=== PATIENT | male | born 2005 | race Caucasian/White ===

== ENCOUNTER 2025-01-13 18:30 | Emergency (ER) | payer SELFPAY ==
--- NOTE | 2025-01-13 18:36 | ED_ITS ---
HPI - Male Genitourinary General Chief complaint: Urogenital-Male Stated complaint: std testing Time Seen by Provider: 01/13/25 18:33 Source: patient Mode of arrival: ambulatory Limitations: no limitations History of Present Illness HPI Narrative: Patient is a 19-year-old male who presents for STD testing. Patient states he is with 2 sexual partners last week and 1 stated she was positive for herpes and chlamydia. Patient has no symptoms and no open sores. Related Data Home Medications ?Medication ?Instructions ?Recorded ?Confirmed ?Last Taken ?Type Zoloft 01/13/25 Unknown History ibuprofen 01/13/25 Unknown History trazodone 01/13/25 Unknown History Allergies Allergy/AdvReac Type Severity Reaction Status Date / Time bacitracin (From Neosporin Allergy Intermediate Rash Verified 01/13/25 18:58 ([id number])) neomycin (From Neosporin Allergy Intermediate Rash Verified 01/13/25 18:58 ([id number])) polymyxin B (From Neosporin Allergy Intermediate Rash Verified 01/13/25 18:58 ([id number])) acetaminophen (From Tylenol) AdvReac Severe Anaphylaxis Verified 01/13/25 18:58 diphenhydramine (From AdvReac Severe Anaphylaxis Verified 01/13/25 18:58 Benadryl) Review of Systems Review of Systems: All systems reviewed & are unremarkable except as noted in HPI and below Constitutional: Constitutional: Denies chills, Denies fever(s), Denies headache(s), Denies malaise and Denies weakness Eyes: Eyes: Denies change in vision, Denies eye discharge and Denies irritation ENT: Denies otalgia, Denies headache(s), Denies nasal congestion, Denies nasal discharge, Denies sinus pain and Denies sore throat Cardiovascular: Cardiovascular: Denies chest pain, Denies edema, Denies palpitations and Denies dyspnea Respiratory: Respiratory: Denies cough and Denies dyspnea Gastrointestinal: Gastrointestinal: Denies abdominal pain, Denies diarrhea, Denies nausea and Denies vomiting Genitourinary: Genitourinary: Denies hematuria, Denies dysuria, Denies flank pain and Denies urinary urgency Musculoskeletal: Musculoskeletal: Denies back pain and Denies numbness Integumentary/Breasts: Skin/Breast: Denies pruritus and Denies rash Neurologic: Denies headache(s), Denies numbness and Denies weakness Psychiatric: Psychiatric: Reports no additional psychiatric complaints Endocrine: Endocrine: Denies palpitations PMFSH Comments At time of signature, agree with nursing past medical, surgical, social and family history. There is no relevant family history pertinent to the presenting complaint. Exam Const: General: cooperative, healthy appearing, comfortable, no acute distress and well nourished Nutritional Appearance: well nourished Orientation/consciousness: patient oriented x3 HENMT: Head: normocephalic and atraumatic Ears: external ears normal Face/Nose/Sinus: Normal external nose present, Normal nares present and normal facial exam Face and sinus: normal facial exam Eyes: General: appearance normal, both eyes and all related structures Pupils: Equal, round and reactive pupils present EOM: EOMs intact bilaterally Neck: Neck: normal visual inspection, full ROM and supple Chest: Chest palpation & inspection: normal inspection of the chest Resp: Effort & Inspection: normal respiratory effort and able to speak in complete sentences Cardio: Rate: regular rate Rhythm: regular rhythm GI: Inspection: normal to inspection GI Palp: No abdominal tenderness and Yes Soft to palpation : General: Yes no CVA tenderness Back/Spine/Pelvis: Back: no CVA tenderness Skin: General skin exam: normal color and no rashes or lesions noted Neuro: General: patient oriented x3 and moves all extremities Cranial nerves: Yes Equal, round and reactive pupils present Extrem: General: normal to inspection and full ROM Psych: Appearance: grossly normal and well kempt Course Course Emergency Course: Patient is aware of diagnosis, understands and agrees to treatment plan. Anticipatory guidance given. Patient agrees to follow-up as directed and is aware of reasons to seek care at the emergency department. Portions of this record may have been created with voice recognition software Level of Care: Express Care Visit Vital Signs Vital signs: Reviewed MDM - Male Genitourinary MDM Narrative Medical decision making narrative: Will empirically treat for Chlamydia with doxycycline. GC and trich culture sent. Abstinence and safe sex precautions were provided and the patient demonstrated understanding. Pt well hydrated appearing, in no respiratory distress, hemodynamically stable. Recommend supportive care. The patient is stable at time of discharge the clini yolis impression was discussed and the patient was given the opportunity to ask questions, which were addressed as completely as possible given the information available at present. Anticipatory guidance and return to care precautions were discussed and the importance of primary care follow-up was stressed and encouraged. The patient voiced understanding of the plan, indications to return, and the need for follow-up. Exam findings show no acute concerns or changes Patient is appropriate for outpatient treatment and follow-up. Differential Diagnosis Differential diagnosis: Likely urinary tract infection, urethritis, epididymitis, prostatitis and other (STI) Discharge Plan Discharge Clinical Impression: Potential exposure to STD Patient Disposition: Home Condition: Stable Instructions: Sexually Transmitted Diseases (ED) Additional Instructions: Take antibiotics as prescribed You have been tested for potential gonorrhea, chlamydia, and trichomoniasis today. You will receive a phone call in 1-2 days with any positive results of today's testing. It is very important that you avoid unprotected intercourse for 7 days and until your partner(s) have been treated. Please encourage your partner(s) to seek testing and treatment. When you have been exposed to sexually transmitted infections, it is important that you seek comprehensive testing, since we do not provide testing for all sexually transmitted infections. Some infections can have no symptoms, but cause serious health problems. Contact your health care provider or report to the emergency department if: ? You have genital swelling or pain, or unusual bleeding. ? You have joint pain, rash, swollen lymph nodes or night sweats. ? You are severe abdominal pain. ? You have a fever. ? Symptoms do not go away or they get worse even after treatment. ? You have bleeding or pain during sex. Patient Language: [place] Prescriptions: New doxycycline monohydrate 100 mg tablet 100 mg PO BID 7 Days Qty: 14 0RF No Action ibuprofen Zoloft trazodone Follow-up/Referrals: Roshan Mcclure MD [Physician, Family Practice] - 3 Days Stand Alone Forms: Work/School Release IP Time of Disposition: 19:01
[2025-01-13 18:41] VITALS: BP 136/85; PULSE 89; RESP 18; TEMP 37; O2SAT 98
[2025-01-14 20:27] LABS: Trichomonas Vag PCR NOT DETECTED (NOT DETECTE)
== END 2025-01-13 19:10 | disposition home or self-care (01) ==
PROVIDERS: Emergency Provider Nurse Practitioner Family
DX: Z11.3 Encounter for screening for infections with a predominantly sexual mode of transmission (principal); F41.9 Anxiety disorder, unspecified; F32.A Depression, unspecified
CPT/HCPCS: 87491; 87591; 87661; 99203; G0463